=== PATIENT | female | born 2000 | race Caucasian/White ===

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

== ENCOUNTER 2022-12-24 16:38 | Emergency (ER) | payer BC, OTHER ==
[~2022-12-24] VITALS: Ht 157.5 cm; Wt 91.8 kg
[2022-12-24 16:39] VITALS: BP 131/69; TEMP 99; O2SAT 97
== END 2022-12-24 18:20 | disposition home or self-care (01) ==
LOC: M ED 16:38
DX: F32.A Depression, unspecified (principal); F90.9 Attention-deficit hyperactivity disorder, unspecified type; Z88.1 Allergy status to other antibiotic agents

== ENCOUNTER 2022-12-25 11:59 | Inpatient (IN) | payer OTHER ==
[~2022-12-25] VITALS: Ht 157.5 cm; Wt 91.7 kg
[2022-12-25 13:36] LABS: HEMATOCRIT 44.2 % (36.0-47.0); HEMOGLOBIN 14.9 g/dl (12.0-15.5); MEAN CORPUSCULAR HEMOGLOBIN 28.4 pg (27.0-33.0); MEAN CORPUSCULAR HGB CONC 33.7 g/dl (32.0-36.5); MEAN CORPUSCULAR VOLUME 84.4 fl (80.0-96.0); PLATELET COUNT, AUTOMATED 349 10^3/uL (150-450); RED BLOOD COUNT 5.24 10^6/uL (4.00-5.40); WHITE BLOOD COUNT 6.9 10^3/uL (4.0-10.0)
[2022-12-25] MEDS ORDERED: traZODone 50 MG TAB PO PRN (15:35)
[2022-12-25] MEDS ORDERED: IBUPROFEN 400MG TAB PO PRN (15:35)
[2022-12-25] MEDS ORDERED: MAALOX 30 ML SUSP *UDC PO PRN (15:35)
[2022-12-25] MEDS ORDERED: MOM 30ML SUSPENSION UDC PO PRN (15:35)
[2022-12-25] MEDS ORDERED: diphenhydrAMINE 25MG CAP PO PRN (15:35)
[2022-12-25 16:41] LABS: HCG, SERUM QUALITATIVE NEGATIVE (NEGATIVE)
[2022-12-25] MEDS ORDERED: MED REC IN PROGRESS XX SCH (17:40)
[2022-12-25] MEDS ORDERED: HOME MED LIST COMPLETE! XX SCH (17:45)
[2022-12-25 23:17] VITALS: BP 110/83; TEMP 98; O2SAT 95
[2022-12-26 05:50] VITALS: BP 128/82; TEMP 97.6; O2SAT 98
[2022-12-26 10:03] LABS: AMPHETAMINES LEVEL URINE NEGATIVE (NEGATIVE); BARBITURATES URINE NEGATIVE (NEGATIVE); BENZODIAZEPINES URINE NEGATIVE (NEGATIVE); CANNABINOIDS URINE NEGATIVE (NEGATIVE); COCAINE METABOLITE URINE NEGATIVE (NEGATIVE); OPIATES URINE NEGATIVE (NEGATIVE); PHENCYCLIDINE URINE NEGATIVE (NEGATIVE)
[2022-12-26 10:07] LABS: BLOOD UREA NITROGEN 19 MG/DL (7-21); CREATININE FOR GFR 0.6 MG/DL (0.7-1.5); GLUCOSE, FASTING 108 MG/DL (70-99); THYROID STIMULATING HORMONE 1.89 UIU/ML (0.47-5.01)
[2022-12-26 10:08] LABS: ALKALINE PHOSPHATASE 107 U/L (35-104); ALT/SGPT 12 U/L (1-33); AST/SGOT 14 U/L (5-40); BILIRUBIN,DIRECT < 0.2 MG/DL (0.1-0.4); BILIRUBIN,TOTAL < 0.7 MG/DL (0.2-1.3); CALCIUM LEVEL 9.5 MG/DL (8.4-10.2); CARBON DIOXIDE LEVEL 23 MEQ/L (22-30); CHLORIDE LEVEL 103 MEQ/L (98-107); GLOMERULAR FILTRATION RATE > 60.0 (>60); POTASSIUM SERUM 4.2 MEQ/L (3.6-5.0); SODIUM LEVEL 139 MEQ/L (134-153)
[2022-12-26 10:09] LABS: ALBUMIN 4.5 G/DL (3.9-5.0); TOTAL PROTEIN 7.6 G/DL (6.3-8.2)
[2022-12-26 18:30] VITALS: BP 121/80; TEMP 97.8; O2SAT 98
[2022-12-26] MEDS: ACETAMINOPHEN TAB 650MG DOSE (2X325MG) PO PRN (20:35)
[2022-12-27 06:06] VITALS: BP 119/69; TEMP 97.2; O2SAT 96
[2022-12-27 15:12] VITALS: BP 125/63; TEMP 98.5; O2SAT 94
[2022-12-27 18:33] VITALS: BP 125/63; TEMP 98.5; O2SAT 94
[2022-12-28 06:12] VITALS: BP 119/67; TEMP 97.8; O2SAT 97
[2022-12-28] MEDS ORDERED: ZIPRASIDONE 20MG CAPSULE (GEODON) PO ONE (12:00)
[2022-12-28 16:11] VITALS: BP 128/59; TEMP 98.9
[2022-12-29 06:44] VITALS: BP 136/63; TEMP 98.2; O2SAT 98
[2022-12-29] MEDS ORDERED: ZIPR20CA13 PO (10:21)
[2022-12-29 16:22] VITALS: BP 118/67; TEMP 98.3; O2SAT 95
[2022-12-29] MEDS ORDERED: ZIPRASIDONE 20MG CAPSULE (GEODON) PO SCH (18:00)
[2022-12-29] MEDS: ACETAMINOPHEN TAB 650MG DOSE (2X325MG) PO PRN (20:27)
[2022-12-30 06:55] VITALS: BP 136/65; TEMP 96.9; O2SAT 97
== END 2022-12-30 11:31 | disposition home or self-care (01) | DRG 753 ==
LOC: M ED 11:59 → M ED INP 15:35 → M PSY 23:15
PROVIDERS: ADMIT Student in an Organized Health Care Education/Training Program; ATTEND Student in an Organized Health Care Education/Training Program
DX: F31.9 Bipolar disorder, unspecified (principal); R00.2 Palpitations; R45.851 Suicidal ideations; Z88.0 Allergy status to penicillin; Z20.822 Contact with and (suspected) exposure to COVID-19; Z56.0 Unemployment, unspecified

== ENCOUNTER → 2023-01-18 | Outpatient (CLI) | payer MEDICAID, OTHER ==
[~2023-01-18] MED LIST: ZIPR20CA13 PO
== END ==
LOC: M RAD 11:32
PROVIDERS: ATTEND Physician Assistant Medical
DX: M25.561 Pain in right knee (principal)

== ENCOUNTER → 2023-08-03 | Outpatient (REF) | payer OTHER | LOC: M LAB REF 16:18 | PROVIDERS: ATTEND Physician Assistant | DX: J02.9 Acute pharyngitis, unspecified (principal) ==